=== PATIENT | female | born 1950 | race Caucasian/White ===

== ENCOUNTER 2024-09-15 14:32 | Emergency (ER) | payer MEDICARE, OTHER, SELFPAY ==
[2024-09-15 14:34] VITALS: BP 149/89
[2024-09-15 15:03] VITALS: BMI 25.1
--- NOTE | 2024-09-15 15:07 | ED.GENMED ---
History of Present Illness
General
Chief Complaint: Head Injury
Source: patient and spouse
Exam Limitations: none
Time Seen by Provider: 09/15/24 14:52
Nursing documentation reviewed up to this point in time: agreed with
History of Present Illness
History of Present Illness:
The patient is a very pleasant 73-year-old female who reports that she tripped and fell while playing pickle ball just prior to arrival. Patient is on a baby aspirin. She is not on anticoagulation. Patient reports there is no loss of
consciousness but she did hit the right side of her head very hard. She denies neck pain, back pain and chest pain. She reports she was previously well and denies any previous dizziness, chest pain or shortness of breath. Patient reports she
feels mildly queasy at this time and has pain around her right forehead area. She denies vomiting. Patient denies vision changes. She denies double vision.
Past History
Past History
ED Past Medical History: Hypercholesterolemia
ED Past Surgical History: Orthopedic
Social History
Tobacco: Non-smoker
Alcohol: None
Drug: None
Personal:
Living: with family
Employment: Other
Review of Systems
Review of Systems
Allergies reviewed?: Yes
All Other Systems: ROS reviewed and negative except as documented in HPI and ROS
Constitutional: Reports no symptoms
EENT: Reports no symptoms
Respiratory: Reports no symptoms
Cardiac: Reports no symptoms
ABD/GI: Reports nausea
: Reports no symptoms
Musculoskeletal: Reports no symptoms
Skin: Reports no symptoms
Neurological: Reports headache
Endocrine: Reports no symptoms
Hematologic/Lymphatic: Reports no symptoms
Psychiatric: Reports no symptoms
Phy Exam
Physical Exam
Physical Exam:
Physical Exam
General: Patient appears slightly anxious but is fully awake. Right frontal scalp hematoma
Neck: supple. Nontender. Mild ecchymoses of right periorbital area. Swelling of right upper eyelid. No subconjunctival hemorrhage. Right globe appears completely normal without hyphema. Extraocular muscles intact.
Heart: s1/s2 regular rate and rhythm, no murmur. equal radial pulses. No vertebral spine tenderness
Lungs: no acute respiratory distress. clear bilaterally
Abdomen: Soft, nontender no CVA tenderness
Neuro: alert and oriented. no focal neurological deficits. PERRL, 5 out of 5 strength in all extremities. Answers all questions appropriately
Skin: Abrasion and mild swelling of bridge of nose
Psychiatric: well kept. interactive and cooperative
Extremities: Nontender pelvis and hips. No tenderness upper and lower extremities
Course
Orders/Labs/Results
Orders:
Orders
09/15/24 14:44
CT Head W/o Iv Contrast Urgent
Comment:
Reason For Exam: fall
09/15/24 15:07
CT Facial Bones W/o Iv Contras Urgent
Comment:
Reason For Exam: fall
Acetaminophen [Tylenol] 1,000 mg PO NOW STA
Ondansetron Orally Disint [Zofran Odt (Orally Disintegrating)] 4 mg PO NOW STA
Vital Signs
Initial and Last Documented VS:
Initial Vital Signs
Temp Pulse Resp BP Pulse Ox
97.8 F 71 16 149/89 98
09/15/24 14:34 09/15/24 14:34 09/15/24 14:34 09/15/24 14:34 09/15/24 14:34
Last Documented Vital Signs
Temp Pulse Resp BP Pulse Ox
97.7 F 57 16 140/71 100
09/15/24 16:44 09/15/24 16:44 09/15/24 16:44 09/15/24 16:44 09/15/24 16:44
MDM/Problems Addressed
Differential Diagnosis Includes:
Postconcussive syndrome, intracranial hemorrhage, subdural hematoma
MDM/Problems Addressed:
Patient presents with acute headache, nausea, scalp hematoma and periorbital ecchymoses after a trip and fall
Acute Exacerbation and/or Progression of Chronic Illness:
Patient is acutely hypertensive, however, she is very upset about the injury and uncomfortable
Acute Exacerbation and/or Progression of Chronic Illness: HTN
*Radiology
Radiology exam reviewed: radiology read reviewed
*Pulse Oximetry
Patient hypoxic: no
*EKG
Interpreted by ED Provider?: NA
*Critical Care Note
Total Time (30-74mins, 75-104mins- exclusive of procedures): Not Applicable
Data Reviewed
Source: patient and spouse
Patient Management
Social determinants of health affecting care: Living situation and Strong social support
Escalation/DeEscalation of care consider admission/obs:
Patient will be watched at home by her . Patient is fully awake, alert and conversational in the ED. She has had no vomiting or mental status change. I feel patient can safely go home to be watched by her .
There is no sign of back or neck trauma.
ED Attending Note
-
Portions of this chart may have been created with voice recognition software.� Occasional wrong word or��sound alike� substitutions may have occurred due to the inherent limitations of voice recognition software.
Discharge Plan
Departure
Patient Disposition: Home (Routine Discharge)
Date of Disposition: 09/15/24
Time of Disposition: 17:55
Patient with high blood pressure during this ER visit?: Yes
Condition: Good
Covid-19: Not Applicable
Discharge Problem:
Closed fracture nasal bone, Closed head injury, Contusion of scalp, Contusion of periorbital region, right
Instructions: Concussion, Adult (DC), Head Injury in Adults (DC), Nose Fracture ED, Contusion
Prescriptions:
New
ondansetron 4 mg tablet,disintegrating
4 mg PO Q8H PRN (Reason: nausea and vomiting) Qty: 14 0RF
Referrals:
Silver Lyons MD [Family Provider] -
Activity Restrictions/Additional Instructions:
Please stay awake until 9 PM tonight so you could be monitored for lethargy or vomiting. After that, you can go to bed.
Please take 400 mg ibuprofen before bedtime tonight for pain control.
Please take 1000 mg of Tylenol every 4-6 hours for pain. Additionally, you could also take 400 mg ibuprofen every 6-8 hours to help with the pain.
It is very important to return for any severe headache, vomiting, lethargy or vision changes.
Please follow-up with your primary care doctor within 1 week.
Interventions
Interventions:
*Risk Screen - Suicide Last Done: 09/15/24 14:34
*General Assessment Last Done: 09/15/24 14:34
*Neglect/Abuse Screening Last Done: 09/15/24 14:34
ED- Fall Risk Assessment Last Done: 09/15/24 15:00
*ED COVID-19 Vaccine History Last Done: 09/15/24 14:34
ED- Neurological Assessment Last Done: 09/15/24 15:02
ED-Skin Assessment Last Done: 09/15/24 15:00
Discharge Date and Time
Print Language: NEPALI
[2024-09-15] MEDS: ZOFRAN ODT (ORALLY DISINTEGRATING) 4 MG PO (15:14)
[2024-09-15] MEDS: TYLENOL 1000 MG PO (15:15)
[2024-09-15 16:44] VITALS: BP 140/71
== END 2024-09-15 18:10 | disposition home or self-care (01) ==
LOC: EMR 14:32
PROVIDERS: EMERGENCY PHYSICIAN Emergency Medicine; FAMILY PHYSICIAN Family Medicine
DX: S02.2XXA Fracture of nasal bones, initial encounter for closed fracture (principal); S00.03XA Contusion of scalp, initial encounter; S00.11XA Contusion of right eyelid and periocular area, initial encounter; W01.0XXA Fall on same level from slipping, tripping and stumbling without subsequent striking against object, initial encounter; E78.00 Pure hypercholesterolemia, unspecified
CPT/HCPCS: 99284; 70450; 70486

== ENCOUNTER 2025-08-28 06:24 | Day surgery (SDC) | payer MEDICARE, OTHER, SELFPAY | END 2025-08-28 14:28 | disposition home or self-care (01) | LOC: GI 06:24 | PROVIDERS: ATTENDING PHYSICIAN Internal Medicine Gastroenterology; FAMILY PHYSICIAN Family Medicine | DX: Z12.11 Encounter for screening for malignant neoplasm of colon (principal); K57.30 Diverticulosis of large intestine without perforation or abscess without bleeding; K64.8 Other hemorrhoids; D12.2 Benign neoplasm of ascending colon; D12.4 Benign neoplasm of descending colon; Z86.0100 Personal history of colon polyps, unspecified; Z80.0 Family history of malignant neoplasm of digestive organs | CPT/HCPCS: 45380; 88305 ==